=== PATIENT | male | born 1990 | race African-American/Black ===

== ENCOUNTER 2020-06-07 23:45 | Emergency (ER) | payer OTHER ==
[~2020-06-07] VITALS: Ht 188 cm; Wt 106.1 kg
[2020-06-07 23:59] VITALS: BP 112/46
[2020-06-08 01:05] VITALS: BP 112/46
== END 2020-06-08 01:04 | disposition home or self-care (01) ==
LOC: MED 23:45
DX: H10.33 Unspecified acute conjunctivitis, bilateral (principal)
CPT/HCPCS: 99283

== ENCOUNTER 2021-03-24 22:34 | Emergency (ER) | payer OTHER ==
[~2021-03-24] VITALS: Ht 190.5 cm; Wt 89.4 kg
[2021-03-24 22:54] VITALS: BP 157/79
--- NOTE | 2021-03-25 00:05 | NUR ---
Patient being evaluated by physician at bedside in triage
[2021-03-25] MEDS ORDERED: CIPR500T4 PO (00:10)
--- NOTE | 2021-03-25 00:13 | NUR ---
No nursing care provided for this patient. Patient discharged with v/s stable. Written and verbal after care instructions given and explained by Dr. Correa.Patient alert, oriented and verbalized understanding of instructions. Ambulatory with steady gait. All questions addressed prior to discharge. ID band removed. Patient advised to follow up with PMD. Rx of cipro given. Patient educated on indication of medication including possible reaction and side effects. Opportunity to ask questions provided and answered.
[2021-03-25] MEDS ORDERED: ONDA4TAB PO (00:14)
== END 2021-03-25 00:13 | disposition home or self-care (01) ==
LOC: MED 22:34
DX: K52.9 Noninfective gastroenteritis and colitis, unspecified (principal); F17.210 Nicotine dependence, cigarettes, uncomplicated; F12.90 Cannabis use, unspecified, uncomplicated; Z79.899 Other long term (current) drug therapy
CPT/HCPCS: 99283

== ENCOUNTER 2024-02-10 12:01 | Emergency (ER) | payer OTHER ==
[~2024-02-10] VITALS: Ht 182.9 cm; Wt 86.2 kg
[~2024-02-10 12:01] MED LIST: CIPR500T4 PO; ONDA4TAB PO
[2024-02-10 12:08] VITALS: BP 133/78; PULSE 92; RESP 16; TEMP 98.6; O2SAT 97
[2024-02-10] MEDS: IBUPROFEN 400 MG TAB PO ONE (12:43)
== END 2024-02-10 12:53 ==
LOC: MED 12:01
DX: S60.812A Abrasion of left wrist, initial encounter (principal); F31.9 Bipolar disorder, unspecified; F20.9 Schizophrenia, unspecified; Z85.07 Personal history of malignant neoplasm of pancreas; Z79.1 Long term (current) use of non-steroidal anti-inflammatories (NSAID); Z79.2 Long term (current) use of antibiotics; X58.XXXA Exposure to other specified factors, initial encounter; Y93.89 Activity, other specified; Y92.89 Other specified places as the place of occurrence of the external cause; Y99.8 Other external cause status
CPT/HCPCS: 99283